=== PATIENT | male | born 1960 | race African-American/Black ===

== ENCOUNTER 2021-10-16 08:58 | Emergency (ER) | payer SELFPAY ==
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
--- NOTE | 2021-10-16 13:01 | XRay Report ---
RIGHT ANKLE 3 VIEW(S) INDICATION / CLINICAL INFORMATION: right ankle pain COMPARISON: None available. FINDINGS: BONES / JOINT(S): No acute fracture or subluxation. There is mild degenerative change in the ankle carla int. SOFT TISSUES: Atherosclerotic calcifications are noted in the posterior tibial artery. ADDITIONAL FINDINGS: None. IMPRESSION: 1. No acute findings. There is mild degenerative change in the ankle joint. Signer Name: Fer Vargas MD Signed: 10/16/2021 12:56 PM Workstation Name: [id number]
[2021-10-16 13:40] VITALS: BP 124/74
== END 2021-10-16 13:40 | disposition home or self-care (01) ==
LOC: ED 08:58
DX: S96.911A Strain of unspecified muscle and tendon at ankle and foot level, right foot, initial encounter (principal); M25.571 Pain in right ankle and joints of right foot; V89.2XXA Person injured in unspecified motor-vehicle accident, traffic, initial encounter; Y93.89 Activity, other specified; Y92.89 Other specified places as the place of occurrence of the external cause; Y99.8 Other external cause status
CPT/HCPCS: 99283